=== PATIENT | female | born 1995 | race Caucasian/White ===

== ENCOUNTER 2017-11-13 18:54 | Emergency (ER) | payer BC ==
[~2017-11-13] VITALS: Ht 162.6 cm; Wt 80.7 kg
--- NOTE | 2017-11-13 18:59 | ED.ADGEN ---
Past History Past Medical History: Anxiety, Other Adult General Chief Complaint Chief Complaint ".. I am going thru. withdrawal .. my meds and also been very anxious since I did methamphetamine 2 days ago I smoked and snorted it.. I also did some coke... and ever since. ... I am very anxious...Dr. Drummond would not reorder my Xanax after I had a positive drug screen so I been out of them this week.... " HPI HPI Patient is a 22 year old female who presents with complaints of anxiety complaints after off Xanax for the past 2 weeks. Patient states her anxiety got worse after snorting meth and smoking meth 2 days ago. Patient also reportedly used cocaine. She has long history of anxiety disorder. The past she taken Xanax for control of her free-floating anxiety. Patient denies any chest pain. Patient denies any trauma. Patient travel. Patient requesting something to help with her anxiety at night. Patient normally follows Dr. Becerra. Review of Systems Review of Systems Constitutional: Denies fever or chills [] Eyes: Denies change in visual acuity, redness, or eye pain [] HENT: Denies nasal congestion or sore throat [] Respiratory: Denies cough or shortness of breath [] Cardiovascular: No additional information not addressed in HPI [] GI: Denies abdominal pain, nausea, vomiting, bloody stools or diarrhea [] : Denies dysuria or hematuria [] Musculoskeletal: Denies back pain or joint pain [] Integument: Denies rash or skin lesions [] Neurologic: Denies headache, focal weakness or sensory changes [] Endocrine: Denies polyuria or polydipsia [] All other systems were reviewed and found to be within normal limits, except as documented in this note. Family History Family History Noncontributory Current Medications Current Medications Current Medications Medications (Trade) Dose Ordered Sig/Kwesi Start Time Stop Time Status Last Admin Dose Admin Lactated Ringer's 1,000 ml @ 75 mls/hr 1X ONCE 11/13/17 19:15 11/14/17 08:34 11/13/17 20:14 75 MLS/HR Lorazepam (Ativan) 2 mg 1X ONCE 11/13/17 21:15 11/13/17 21:43 DC 11/13/17 21:20 2 MG See nursing for home meds Allergies Allergies Allergies Coded Allergies Type Severity Reaction Last Updated Verified No Known Drug Allergies 11/13/17 No Physical Exam Physical Exam Constitutional: Well developed, well nourished, no acute distress, non-toxic appearance. [] HENT: Normocephalic, atraumatic, bilateral external ears normal, oropharynx moist, no oral exudates, nose normal. [] Eyes: PERRLA, EOMI, conjunctiva normal, no discharge. [] Neck: Normal range of motion, no tenderness, supple, no stridor. [] Cardiovascular:Heart rate regular rhythm, no murmur [] Lungs & Thorax: Bilateral breath sounds equal apex with few scattered wheezes auscultation [] Abdomen: Bowel sounds normal, soft, no tenderness, no masses, no pulsatile masses. [] Skin: Warm, dry, no erythema, no rash. [] Back: No tenderness, no CVA tenderness. [] Extremities: No tenderness, no cyanosis, no clubbing, ROM intact, no edema. [] Neurologic: Alert and oriented X 3, normal motor function, normal sensory function, no focal deficits noted. [] Psychologic: Affect anxious, judgement normal, mood normal. [] Current Patient Data Lab Results Laboratory Tests Test 11/13/17 20:00 11/13/17 20:40 POC Urine HCG, Qualitative hcg negative (Negative) Urine Collection Type Unknown Urine Color Kyra Urine Clarity Hazy Urine pH 5.5 Urine Specific [place] >=1.030 Urine Protein 30 mg/dl (NEG-TRACE) Urine Glucose (UA) Neg mg/dL (NEG) Urine Ketones (Stick) Neg mg/dL (NEG) Urine Blood Small (NEG) Urine Nitrite Neg (NEG) Urine Bilirubin Small (NEG) Urine Urobilinogen Dipstick 2 mg/dL (0.2 mg/dL) Urine Leukocyte Esterase Neg (NEG) Urine RBC 1-2 /HPF (0-2) Urine WBC 1-4 /HPF (0-4) Urine Squamous Epithelial Cells Mod /LPF Urine Bacteria Few /HPF (0-FEW) Urine Mucus Mod /LPF Urine Opiates Screen Neg (NEG) Urine Methadone Screen Neg (NEG) Urine Barbiturates Neg (NEG) Urine Phencyclidine Screen Neg (NEG) Urine Amphetamine/Methamphetamine Pos (NEG) Urine Benzodiazepines Screen Neg (NEG) Urine Cocaine Screen Pos (NEG) Urine Cannabinoids Screen Pos (NEG) Urine Ethyl Alcohol Neg (NEG) EKG EKG [] Radiology/Procedures Radiology/Procedures [] Course & Med Decision Making Course & Med Decision Making Pertinent Labs and Imaging studies reviewed. (See chart for details). She avoid use of methamphetamine and cocaine. Patient follow-up counseling center. Patient avoid high caffeine products. Patient return if any concerns. Patient encouraged follow-up [] Final Impression Final Impression 1. Hx. of Anxiety disorder[] 2. Drug-seeking behavior 3. Polysubstance abuse methamphetamine, cocaine, tobacco and marijuana Dragon Disclaimer Dragon Disclaimer This electronic medical record was generated, in whole or in part, using a voice recognition dictation system. JORDAN HANCOCK MD Nov 13, 2017 18:59
[2017-11-13] MEDS ORDERED: IV RINGERS SOLUTION,LACTATED 1,000 ML IV ONE (19:15)
[2017-11-13 20:45] VITALS: BP 128/76
[2017-11-13 21:00] LABS: BARBITURATES NEG (NEG); BENZODIAZEPINES NEG (NEG); CANNABINOIDS POS (NEG); COCAINE POS (NEG); METHADONE NEG (NEG); OPIATES NEG (NEG); PHENCYCLIDINE NEG (NEG)
[2017-11-13 21:02] LABS: BILIRUBIN,URINE SMALL (NEG); CLARITY,URINE HAZY; COLOR,URINE AMBER; GLUCOSE,URINE NEG (NEG); NITRITE,URINE NEG (NEG); UROBILINOGEN,URINE 2 mg/dL (0.2 mg/dL)
[2017-11-13 21:03] LABS: BACTERIA,URINE FEW /HPF (0-FEW); SQUAMOUS EPITHELIAL CELL,UR MOD /LPF
[2017-11-13 21:05] LABS: AMPHETAMINE/METHAMPHETAMINE POS (NEG)
[2017-11-13] MEDS ORDERED: LORazepam 1 MG TABLET PO ONE (21:15)
== END 2017-11-13 21:23 | disposition home or self-care (01) ==
LOC: ER 18:54
DX: F41.9 Anxiety disorder, unspecified (principal); Z76.5 Malingerer [conscious simulation]; F12.10 Cannabis abuse, uncomplicated; F15.10 Other stimulant abuse, uncomplicated; F14.10 Cocaine abuse, uncomplicated; F17.200 Nicotine dependence, unspecified, uncomplicated
CPT/HCPCS: 36415; 80307; 81001; 81025; 99284; J7120; G0479

== ENCOUNTER 2018-09-08 13:59 | Emergency (ER) | payer BC ==
[2018-09-08 14:10] VITALS: BP 130/67
[2018-09-08] MEDS ORDERED: hydrOXYzine HCL 25 MG TABLET PO STA (14:26)
[2018-09-08] MEDS ORDERED: hydrOXYzine HCL 25 MG TABLET ONE (14:30)
--- NOTE | 2018-09-08 14:31 | PHYS DOC ---
Past History Past Medical History: Anxiety, Other Past Surgical History: No Surgical History Alcohol Use: Heavy Drug Use: Cocaine, Marijuana, Methamphetamine, Opiates Adult General Chief Complaint Chief Complaint: LACERATION/AVULSION [facility] HPI Patient is a 23-year-old female who presents with complaint of laceration to her right foot. Patient states that she was walking through the glass with flip- flops and a sharp piece of glass cut the dorsal aspect of her foot. Patient states that she saw the piece of glass and there is no retained foreign body. She reports that pain is mild in her foot. She denies any other injuries.[] Review of Systems Review of Systems Constitutional: Denies fever or chills [] Respiratory: Denies cough or shortness of breath [] Cardiovascular: No additional information not addressed in HPI [] Musculoskeletal: Positive right foot laceration and pain [] Allergies Allergies Allergies Coded Allergies Type Severity Reaction Last Updated Verified No Known Drug Allergies 11/13/17 No Physical Exam Physical Exam Constitutional: Well developed, well nourished, no acute distress, non-toxic appearance. [] Cardiovascular:Heart rate regular rhythm, no murmur [] Lungs & Thorax: Bilateral breath sounds clear to auscultation [] Skin: There is a 2.75 similar laceration to the dorsal aspect of the right foot. Laceration is curved but margins are sharp. Laceration extends into subcutaneous tissue with no muscle or tendon involvement. [] Current Patient Data Vital Signs Vital Signs Date Time Temp Pulse Resp B/P (MAP) Pulse Ox O2 Delivery O2 Flow Rate FiO2 09/08/18 14:10 97.7 124 20 98 Room Air EKG EKG [] Radiology/Procedures Radiology/Procedures [] Course & Med Decision Making Course & Med Decision Making Pertinent Labs and Imaging studies reviewed. (See chart for details) Laceration Repair by me: Anesthesia: 1% lidocaine locally Location: Dorsal aspect of right foot Tendon/Joint/Nerves: No injury Foreign body: None detected after copious irrigation and exploration Technique: A total of 7 Simple Interrupted Sutures were placed utilizing 5-0 Ethilon suture material. Complexity: No subcutaneous sutures/mucosal repair/edge excision Post Closure Length: 2.75 cm Patient's bleeding was easily controlled in the department and there is no indication of anemia. No evidence of compartment syndrome, neurologic injury, vascular injury, open joint, tendon laceration, or foreign body. Patient is appropriate for outpatient follow up. 48 hour wound check. Scar minimization instructions given. Dragon Disclaimer Dragon Disclaimer This electronic medical record was generated, in whole or in part, using a voice recognition dictation system. Departure Departure: Impression: Primary Impression: Laceration of right foot Disposition: HOME, SELF-CARE Condition: STABLE Referrals: PCP,NO (PCP) Patient Instructions: Laceration Care, Adult Additional Instructions: Return for suture removal in 10 days. Problem Qualifiers Primary Impression: Laceration of right foot Encounter type: initial encounter Qualified Codes: S91.311A - Laceration without foreign body, right foot, initial encounter KARIME CALLAHAN Jr. DO Sep 08, 2018 14:31
== END 2018-09-08 15:12 | disposition home or self-care (01) ==
LOC: ER 13:59
DX: S91.311A Laceration without foreign body, right foot, initial encounter (principal); F41.9 Anxiety disorder, unspecified; F10.20 Alcohol dependence, uncomplicated; Y90.9 Presence of alcohol in blood, level not specified; W25.XXXA Contact with sharp glass, initial encounter; Y93.01 Activity, walking, marching and hiking; Y92.89 Other specified places as the place of occurrence of the external cause; Y99.8 Other external cause status
CPT/HCPCS: 12001; 99283

== ENCOUNTER 2018-09-19 11:24 | Emergency (ER) | payer BC ==
[~2018-09-19] VITALS: Ht 162.6 cm; Wt 80.7 kg
[2018-09-19 11:33] VITALS: BP 119/71
[2018-09-19] MEDS ORDERED: BACITRACIN ZINC TOPICAL OINT PACKET. TP ONE (11:45)
[2018-09-19] MEDS ORDERED: CLIN300C8 PO (11:46)
--- NOTE | 2018-09-19 11:50 | PHYS DOC ---
Past History Past Medical History: Anxiety, Other Past Surgical History: No Surgical History Alcohol Use: Heavy Drug Use: Cocaine, Marijuana, Methamphetamine, Opiates Adult General Chief Complaint Chief Complaint: SUTURE/STAPLE REMOVAL HPI HPI Patient is a 23 yo f suture removal cut it with glass ten daysago has pain has not been cleaning it because it hurt so much she didnt know what to do with it Current Medications Current Medications Current Medications Medications (Trade) Dose Ordered Sig/Kwesi Start Time Stop Time Status Last Admin Dose Admin Bacitracin (Bacitracin Topical Pkt) 1 pkt 1X ONCE 09/19/18 11:45 09/19/18 11:46 DC Allergies Allergies Allergies Coded Allergies Type Severity Reaction Last Updated Verified No Known Drug Allergies 11/13/17 No Physical Exam Physical Exam Constitutional: Well developed, well nourished, no acute distress, non-toxic appearance. [] HENT: Normocephalic, atraumatic, bilateral external ears normal, oropharynx moist, no oral exudates, nose normal. [] Eyes: PERRLA, EOMI, conjunctiva normal, no discharge. [] Neck: Normal range of motion, no tenderness, supple, no stridor. [] Skin: laceration top of foot 3 cm with sutures in place, some erythema in duration tenderness and small amount of drainage noted after suture removal partial dehiscence 0.25 cm. Extremities: No tenderness, no cyanosis, no clubbing, ROM intact, no edema. [] Neurologic: Alert and oriented X 3, normal motor function, normal sensory function, no focal deficits noted. [] Psychologic: Affect normal, judgement normal, mood normal. [] EKG EKG [] Radiology/Procedures Radiology/Procedures [] Course & Med Decision Making Course & Med Decision Making Pertinent Labs and Imaging studies reviewed. (See chart for details) []23 yo f with suture removal evidence of mild wound infection covered with bacitracin clinda ordered rx return prec discussed Alex Disclaimer Alex Disclaimer This electronic medical record was generated, in whole or in part, using a voice recognition dictation system. Departure Departure: Impression: Primary Impression: Visit for suture removal Disposition: 01 HOME, SELF-CARE Condition: STABLE Patient Instructions: Suture Removal Scripts Clindamycin Hcl (CLINDAMYCIN HCL) 300 Mg Capsule 1 CAP PO TID for infection, #21 CAP Prov: ZHANE JACOBSON MD 09/19/18 ZHANE JACOBSON MD Sep 19, 2018 11:50
== END 2018-09-19 11:56 | disposition home or self-care (01) ==
LOC: ER 11:24
DX: S91.311D Laceration without foreign body, right foot, subsequent encounter (principal); F10.20 Alcohol dependence, uncomplicated; W25.XXXD Contact with sharp glass, subsequent encounter; Y90.9 Presence of alcohol in blood, level not specified
CPT/HCPCS: 99283; 99284